=== PATIENT | female | born 1970 | race Caucasian/White ===

== ENCOUNTER 2016-04-23 13:03 | Emergency (ER) | payer SELFPAY ==
[2016-04-23 13:21] VITALS: BP 178/81
--- NOTE | 2016-04-23 13:35 | ER Document Report ---
ED Medical Screen (RME) - General Stated Complaint: FACIAL SWELLING Time seen by provider: 13:33 Mode of Arrival: Ambulatory Information source: Patient Notes: 45-year-old female complaining of pain and swelling to the left lower jaw that started 3 days ago. I can palpate abscess adjacent to those teeth. TRAVEL OUTSIDE OF THE [place] IN LAST 30 DAYS: No - Related Data Allergies/Adverse Reactions: No Known Allergies Allergy (Verified 04/23/16 13:31) Past Medical History - Past Medical History Cardiac Medical History: Denies: Hx Congestive Heart Failure, Hx Heart Attack, Hx Hypertension Pulmonary Medical History: Denies: Hx Asthma, Hx Bronchitis, Hx COPD, Hx Pneumonia, Hx Tuberculosis Neurological Medical History: Denies: Hx Seizures Renal/ Medical History: Reports: Hx Kidney Stones. Denies: Hx End Stage Renal Disease, Hx Peritoneal Dialysis GI Medical History: Denies: Hx Cirrhosis, Hx Gastroesophageal Reflux Disease, Hx Ulcer Musculoskeltal Medical History: Denies Hx Arthritis, Denies Hx Fibromyalgia, Denies Hx Multiple Sclerosis, Denies Hx Muscular Dystrophy Psychiatric Medical History: Reports: Hx Attention Deficit Hyperactivity Disorder, Hx Depression Denies: Hx Bipolar Disorder, Hx Schizophrenia Traumatic Medical History: Denies: Hx Fractures Past Surgical History: Reports: Hx Section - x2, Hx Hysterectomy, Hx Tonsillectomy. Denies: Hx Appendectomy, Hx Bowel Surgery, Hx Cholecystectomy, Hx Coronary Artery Bypass Graft, Hx Gastric Bypass Surgery, Hx Herniorrhaphy, Hx Mastectomy, Hx Pacemaker, Hx Tubal Ligation - Immunizations Hx Diphtheria, Pertussis, Tetanus Vaccination: Yes Physical Exam - Vital signs Vitals: Temp Pulse Resp BP Pulse Ox 99.4 F 118 H 20 178/81 H 96 04/23/16 13:20 04/23/16 13:20 04/23/16 13:20 04/23/16 13:20 04/23/16 13:20 Course - Vital Signs Vital signs: Temp Pulse Resp BP Pulse Ox 99.4 F 118 H 20 178/81 H 96 04/23/16 13:20 04/23/16 13:20 04/23/16 13:20 04/23/16 13:20 04/23/16 13:20
[2016-04-23 14:00] LABS: ABSOLUTE BASOPHILS # (AUTO) 0.2 10^3/uL (0.0-0.2); ABSOLUTE EOSINOPHILS # (AUTO) 0.1 10^3/uL (0.0-0.6); ABSOLUTE LYMPHOCYTES (AUTO) 4.8 10^3/uL (0.5-4.7); ABSOLUTE MONOCYTES (AUTO) 0.8 10^3/uL (0.1-1.4); ABSOLUTE NEUT (AUTO) 17.5 10^3/uL (1.7-8.2); EOSINOPHILS % (AUTO) 0.6 % (0-6); HEMATOCRIT 46.5 % (36.0-47.0); HGB HCT DIFFERENCE 1.5; LYMPHOCYTES % (AUTO) 20.6 % (13-45); MEAN CORPUSCULAR HEMOGLOBIN 30.6 pg (27.0-33.4); MEAN CORPUSCULAR HGB CONC 34.4 g/dL (32.0-36.0); MEAN CORPUSCULAR VOLUME 89 fl (80-97); MONOCYTES % (AUTO) 3.3 % (3-13); RED BLOOD COUNT 5.23 10^6/uL (3.72-5.28); RED CELL DISTRIBUTION WIDTH 13.7 % (11.5-14.0); SEGMENTED NEUTROPHILS % (AUTO) 74.5 % (42-78); WHITE BLOOD COUNT 23.5 10^3/uL (4.0-10.5)
--- NOTE | 2016-04-23 14:07 | ER Document Report ---
ED ENT - General Chief Complaint: Abscess Stated Complaint: FACIAL SWELLING Mode of Arrival: Ambulatory Notes: Patient is complaining of painful swelling of the left jaw and face that began on Friday and is progressively worsened. She is not having any trouble breathing or trouble swallowing saliva, although she has difficulty swallowing liquids from a glass because of the swelling of the left side of the face making it difficult. She's had a fever. No shortness of breath or difficulty breathing. She's never had this before. Not aware of any bad teeth in that area. PMH: Hysterectomy, , sponge kidney, bladder sling, tonsils and adenoids removed. TRAVEL OUTSIDE OF THE [place] IN LAST 30 DAYS: No - Related Data Allergies/Adverse Reactions: No Known Allergies Allergy (Verified 04/23/16 13:31) Past Medical History - General Information source: Patient - Social History Smoking Status: Current Every Day Smoker Cigarette use (# per day): Yes Chew tobacco use (# tins/day): No Frequency of alcohol use: None Family History: Reviewed & Not Pertinent Patient has suicidal ideation: No Patient has homicidal ideation: No Renal/ Medical History: Reports: Hx Kidney Stones, Other - History of medullary sponge kidney and surgery. GI Medical History: Denies: Hx Cirrhosis, Hx Gastroesophageal Reflux Disease, Hx Ulcer Musculoskeltal Medical History: Denies Hx Arthritis, Denies Hx Fibromyalgia, Denies Hx Multiple Sclerosis, Denies Hx Muscular Dystrophy Psychiatric Medical History: Reports: Hx Attention Deficit Hyperactivity Disorder, Hx Depression Denies: Hx Bipolar Disorder, Hx Schizophrenia Traumatic Medical History: Denies: Hx Fractures Past Surgical History: Reports: Hx Section - x2, Hx Hysterectomy, Hx Tonsillectomy. Denies: Hx Appendectomy, Hx Bowel Surgery, Hx Cholecystectomy, Hx Coronary Artery Bypass Graft, Hx Gastric Bypass Surgery, Hx Herniorrhaphy, Hx Mastectomy, Hx Pacemaker, Hx Tubal Ligation - Immunizations Hx Diphtheria, Pertussis, Tetanus Vaccination: Yes Hx Pneumococcal Vaccination: 04/14/10 Review of Systems - Review of Systems Notes: REVIEW OF SYSTEMS: CONSTITUTIONAL : Has felt feverish. EENT: Denies eye, ear, nose pain or other symptoms. See history of present illness. CARDIOVASCULAR: Denies chest pain. RESPIRATORY: Denies cough, chest congestion, or shortness of breath. GASTROINTESTINAL: Denies abdominal pain or nausea, vomiting, or diarrhea. GENITOURINARY: Denies difficulty or painful urinating, urinary frequency, blood in urine. MUSCULOSKELETAL: Denies back or neck pain. Denies joint pain or swelling. SKIN: Denies rash or skin lesions. NEUROLOGICAL: Denies LOC or altered mental status. Denies headache. Denies sensory loss or motor deficits. ALL OTHER SYSTEMS REVIEWED AND NEGATIVE. Physical Exam - Vital signs Vitals: Temp Pulse Resp BP Pulse Ox 99.4 F 118 H 20 178/81 H 96 04/23/16 13:20 04/23/16 13:20 04/23/16 13:20 04/23/16 13:20 04/23/16 13:20 Interpretation: Tachycardic - Mild, Febrile - Low-grade - Notes Notes: PHYSICAL EXAMINATION: GENERAL: Well-appearing, in no acute distress. Low-grade fever and slight tachycardia. HEAD: Atraumatic, normocephalic. ENT: oropharynx clear without exudates. Can open mouth. Significant swelling of the left lower face, initially along the region of the mid left mandible which is very tense and tender at about the level of teeth #20-21. No drainage noted and I don't actually see a tooth that may be the culprit in this apparent abscess. Moist mucous membranes. NECK: Normal range of motion, supple. No impingement on the airway or upon swallowing. LUNGS: Breath sounds clear and equal bilaterally. HEART: Regular rate and rhythm without murmurs. ABDOMEN: Soft, nontender. No guarding or rebound. BACK: No tenderness throughout entire back. EXTREMITIES: Normal range of motion without pain. NEUROLOGICAL: Normal speech, normal gait. Normal sensory, motor, and reflex exams. Awake, alert, and oriented x3. Cranial nerves normal. SKIN: Warm, dry, no rashes. Course - Re-evaluation Re-evalutation: 04/23/16 14:54 CBC and chem 12 results noted. Results faxed to Dr. Dockery office. - Vital Signs Vital signs: Temp Pulse Resp BP Pulse Ox 99.4 F 118 H 20 178/81 H 96 04/23/16 13:20 04/23/16 13:20 04/23/16 13:20 04/23/16 13:20 04/23/16 13:20 - Laboratory Result Diagrams: 04/23/16 13:40 04/23/16 13:40 Laboratory results interpreted by me: 04/23/16 04/23/16 13:40 13:40 WBC 23.5 H Hgb 16.0 H Absolute Neutrophils 17.5 H Absolute Lymphocytes 4.8 H Carbon Dioxide 20 L Glucose 130 H Calcium 10.4 H Discharge - Discharge Clinical Impression: Abscess of face Condition: Stable Disposition: HOME, SELF-CARE Additional Instructions: Abscess You have an abscess. This a pus-forming infection, usually due to staph. Some boils may be left to drain on their own, but most require lancing. From the time the tender lump first appears, it may be three or four days before the abscess is ready to alina. Local heat and rest help at this stage of treatment. An antibiotic may prevent spread of the infection. Once the abscess is opened, packing may be placed into it. This is done so pus is not sealed inside by premature closure of the cavity. The packing will be removed at your follow-up visit or you may be advised to remove it yourself at home. Sometimes this packing must be replaced a few times during healing. The wound will heal with surprisingly little scar. Depending on the size and location of an abscess, healing can take one to four weeks. You may shower and wash the area around the incision site two or three times a day. Antibiotics may be prescribed, but are usually not necessary after an abscess has been drained. Dental Infection or Abscess You have an infection, perhaps an abscess (pus formation) of the gum around one of your teeth, which is probably decayed. If there is an abscess, it may drain on its own or it may need to be opened or lanced. Severe swelling or drainage around a tooth usually means a deep dental abscess which usually requires evaluation and treatment by a dentist or oral surgeon. Antibiotics may be prescribed while awaiting dental treatment. If you develop high fever with chills, worsening pain, or increasing swelling in the area, see a dentist or oral surgeon immediately or return to the Emergency Department immediately. I have called and made arrangements for you to be seen at the oral surgeon's office after your discharge from this emergency department. Dr. Dockery is the doctor who is on-call and on duty in their office. They are located at [address] [place] [address] in their phone number is [phone]. Go directly to their office as soon as you were discharged from the emergency department. FOLLOW-UP CARE: If you have been referred to a physician for follow-up care, call the physician s office for an appointment as you were instructed or within the next two days. If you experience worsening or a significant change in your symptoms, notify the physician immediately or return to the Emergency Department at any time for re-evaluation. Referrals: JERALD DOCKERY DDS [ACTIVE STAFF] - 04/23/16
[2016-04-23 14:10] LABS: ALANINE AMINOTRANSFERASE 32 U/L (9-52); ALBUMIN 4.5 g/dL (3.5-5.0); ALKALINE PHOSPHATASE 112 U/L (38-126); ANION GAP 18 (5-19); ASPARTATE AMINO TRANSFERASE 21 U/L (14-36); BILIRUBIN,TOTAL 0.7 mg/dL (0.2-1.3); BLOOD UREA NITROGEN 10 mg/dL (7-20); CALCIUM 10.4 mg/dL (8.4-10.2); CARBON DIOXIDE 20 mmol/L (22-30); CHLORIDE 104 mmol/L (98-107); GLUCOSE 130 mg/dL (75-110); POTASSIUM 4.1 mmol/L (3.6-5.0); SODIUM 141.8 mmol/L (137-145); TOTAL PROTEIN 7.8 g/dL (6.3-8.2)
== END 2016-04-23 14:05 | disposition home or self-care (01) ==
LOC: ER 13:03
DX: L02.01 Cutaneous abscess of face (principal); R13.10 Dysphagia, unspecified; R50.9 Fever, unspecified; R00.0 Tachycardia, unspecified; F17.210 Nicotine dependence, cigarettes, uncomplicated
CPT/HCPCS: 36415; 80053; 85025; 99283